=== PATIENT | male | born 1975 | race Caucasian/White ===

== ENCOUNTER 2018-06-30 03:22 | Inpatient (IN) | payer OTHER ==
[~2018-06-30] VITALS: Ht 177.8 cm; Wt 106.1 kg
[2018-06-30] MEDS ORDERED: ASPIRIN 81 MG TABLET CHEW PO ONE (04:00)
[2018-06-30] MEDS ORDERED: ONDANSETRON 2MG/ML, 2ML IVPush ONE (04:00)
[2018-06-30] MEDS ORDERED: ASPIRIN 81 MG TABLET CHEW ONE (04:09)
[2018-06-30] MEDS ORDERED: MORPHINE SULFATE 4 MG/ML, 1ML ONE ×2 (04:09→04:34)
[2018-06-30] MEDS ORDERED: ONDANSETRON 2MG/ML, 2ML ONE (04:09)
[2018-06-30] MEDS: MORPHINE SULFATE 4 MG/ML, 1ML IVPush PRN ×2 (04:11→04:38)
[2018-06-30 04:22] LABS: MEAN CORPUSCULAR HEMOGLOBIN 31.1 pg (27.5-34.5); MEAN CORPUSCULAR HGB CONC 34.8 g/dL (33.2-36.2); MEAN CORPUSCULAR VOLUME 89.3 fL (81-97); MEAN PLATELET VOLUME 8.5 fL (7.4-10.4); PLATELET COUNT 79 x10^3/uL (130-400); RED BLOOD COUNT 5.51 x10^6/uL (4.38-5.82); RED CELL DISTRIBUTION WIDTH 13.6 % (9.4-14.8)
[2018-06-30 04:26] LABS: INTERNATIONAL NORMALIZED RATIO 1.03 (0.93-1.1); PROTHROMBIN TIME 10.7 Seconds (9.6-11.5)
[2018-06-30 04:29] LABS: ALANINE AMINOTRANSFERASE 222 U/L (12-78); ALBUMIN 3.7 g/dL (3.4-5.0); ANION GAP 20 mmol/L (5-15); CALCIUM 7.4 mg/dL (8.5-10.1); CHLORIDE 90 mmol/L (98-107); CREATININE 0.94 mg/dL (0.7-1.3)
[2018-06-30 04:33] LABS: ALKALINE PHOSPHATASE 85 U/L (45-117); BILIRUBIN,TOTAL 1.9 mg/dL (0.2-1.0); TOTAL PROTEIN 7.8 g/dL (6.4-8.2); TROPONIN I < 0.015 ng/mL (0.000-0.045)
[2018-06-30 04:43] LABS: BASOPHILS # (AUTO) 0.03 x10^3/uL (0-0.1); BASOPHILS % (AUTO) 1 % (0-1); EOSINOPHILS % (AUTO) 0 % (1-7); LYMPHOCYTES # (AUTO) 1.42 x10^3/uL (1-3.4); LYMPHOCYTES % (AUTO) 29 % (22-44); MD SCAN; MONOCYTES # (AUTO) 0.47 x10^3/uL (0.2-0.8); MONOCYTES % (AUTO) 10 % (2-9); NEUTROPHILS % (AUTO) 61 % (42-75)
[2018-06-30] MEDS ORDERED: LORazepam 2 MG/ML, 1ML ONE (04:57)
[2018-06-30] MEDS ORDERED: SODIUM CHLORIDE 0.9% 1,000ML IVBOLUS ONE ×2 (05:00→05:30)
[2018-06-30] MEDS ORDERED: LORazepam 2 MG/ML, 1ML IVPush ONE (05:00)
[2018-06-30 05:11] LABS: MICROSCOPIC INDICATED
[2018-06-30 05:13] LABS: AMPHETAMINE SCREEN, URINE Negative (Negative); BARBITURATE SCREEN, URINE Negative (Negative); BENZODIAZEPINE SCREEN, URINE Negative (Negative); CANNABINOID SCREEN, URINE Negative (Negative); COCAINE SCREEN, URINE Negative (Negative); METHADONE SCREEN, URINE Negative (Negative); OPIATE SCREEN, URINE Positive (Negative)
[2018-06-30] MEDS ORDERED: WARF1TAB PO (05:14)
[2018-06-30 05:17] LABS: CULTURE INDICATED? NO
[2018-06-30] MEDS ORDERED: OMNIPAQUE 350 MG/ML, 100ML BOTTLE ONE (05:21)
[2018-06-30] MEDS ORDERED: SODIUM CHLORIDE 0.9% 1,000 ML IV ONE (06:04)
[2018-06-30] MEDS ORDERED: MORPHINE SULFATE 4 MG/ML, 1ML IVPush PRN (06:30)
[2018-06-30] MEDS ORDERED: ONDANSETRON 2MG/ML, 2ML IVPush PRN (06:30)
[2018-06-30 07:29] VITALS: BP 133/92
[2018-06-30] MEDS ORDERED: MORPHINE SULFATE 4 MG/ML, 1ML IVPush ONE (08:00)
[2018-06-30] MEDS ORDERED: POTASSIUM CHLORIDE 10 MEQ, MVI ADULT 10 ML, FOLIC ACID 1 MG, MAGNESIUM SULFATE 1 GM in ... IV SCH (09:05)
[2018-06-30] MEDS ORDERED: DOCUSATE 100 MG CAPSULE PO PRN (09:30)
[2018-06-30] MEDS ORDERED: LACTATED RINGERS 1,000 ML IVBOLUS ONE (09:30)
[2018-06-30] MEDS ORDERED: ACETAMINOPHEN 325 MG TABLET PO PRN (09:30)
[2018-06-30] MEDS ORDERED: HYDROcodone/APAP 5/325 TABLET PO PRN (09:30)
[2018-06-30] MEDS ORDERED: LORazepam 2 MG/ML, 1ML IV PRN (09:30)
[2018-06-30 09:41] LABS: CHOLESTEROL, TOTAL 245 mg/dL (140-239)
[2018-06-30 09:44] LABS: CHOL/HDL RATIO 4.8; HDL CHOL % 21 % (26-37); HDL CHOLESTEROL (DIRECT) 51 mg/dL (40-60); TRIGLYCERIDES 617 mg/dL (50-200)
[2018-06-30] MEDS: LORazepam 2 MG/ML, 1ML IV PRN ×5 (10:09→23:30)
[2018-06-30 10:13] VITALS: BP 133/92
[2018-06-30] MEDS: morphine SULFATE 10 MG/ML, 1ML IVPush PRN ×3 (10:45→17:17)
[2018-06-30 14:30] VITALS: BP 149/86
[2018-06-30] MEDS ORDERED: ENOXAPARIN 40 MG/0.4 ML SQ SCH (14:30)
[2018-06-30] MEDS: LACTATED RINGERS 1,000 ML IV SCH (20:34)
[2018-06-30 21:08] VITALS: BP 181/109
[2018-07-01] MEDS: LACTATED RINGERS 1,000 ML IV SCH ×2 (01:23→06:44)
[2018-07-01 03:08] VITALS: BP 132/83
[2018-07-01] MEDS: LORazepam 2 MG/ML, 1ML IV PRN ×4 (03:11→22:02)
[2018-07-01 04:52] LABS: ALANINE AMINOTRANSFERASE 196 U/L (12-78); ALBUMIN 3.6 g/dL (3.4-5.0); ANION GAP 9 mmol/L (5-15); CALCIUM 7.7 mg/dL (8.5-10.1); CHLORIDE 96 mmol/L (98-107); CREATININE 0.64 mg/dL (0.7-1.3)
[2018-07-01 04:54] LABS: ALKALINE PHOSPHATASE 77 U/L (45-117); BILIRUBIN,TOTAL 2.7 mg/dL (0.2-1.0); TOTAL PROTEIN 7.4 g/dL (6.4-8.2)
[2018-07-01 07:36] VITALS: BP 138/94
[2018-07-01] MEDS ORDERED: POTASSIUM CHLORIDE 10 MEQ, MVI ADULT 10 ML, FOLIC ACID 1 MG, MAGNESIUM SULFATE 1 GM in ... IV SCH (09:00)
[2018-07-01 15:00] VITALS: BP 133/95
[2018-07-01 15:19] LABS: BASOPHILS # (AUTO) 0.01 x10^3/uL (0-0.1); BASOPHILS % (AUTO) 0 % (0-1); EOSINOPHILS # (AUTO) 0.02 x10^3/uL (0-0.4); EOSINOPHILS % (AUTO) 1 % (1-7); LYMPHOCYTES # (AUTO) 0.78 x10^3/uL (1-3.4); LYMPHOCYTES % (AUTO) 20 % (22-44); MD NO; MEAN CORPUSCULAR HEMOGLOBIN 31.3 pg (27.5-34.5); MEAN CORPUSCULAR HGB CONC 34.9 g/dL (33.2-36.2); MEAN CORPUSCULAR VOLUME 89.6 fL (81-97); MEAN PLATELET VOLUME 8.7 fL (7.4-10.4); MONOCYTES # (AUTO) 0.36 x10^3/uL (0.2-0.8); MONOCYTES % (AUTO) 9 % (2-9); NEUTROPHILS # (AUTO) 2.74 x10^3/uL (1.8-6.8); NEUTROPHILS % (AUTO) 70 % (42-75); PLATELET COUNT 73 x10^3/uL (130-400); RED BLOOD COUNT 4.99 x10^6/uL (4.38-5.82); RED CELL DISTRIBUTION WIDTH 13.4 % (9.4-14.8)
[2018-07-01] MEDS: morphine SULFATE 10 MG/ML, 1ML IVPush PRN ×2 (17:43→20:52)
[2018-07-01 19:56] VITALS: BP 136/96
[2018-07-02 00:59] VITALS: BP 135/83
[2018-07-02] MEDS: ONDANSETRON 2MG/ML, 2ML IVPush PRN ×3 (01:05→21:14)
[2018-07-02] MEDS: LORazepam 2 MG/ML, 1ML IV PRN ×3 (02:03→15:06)
[2018-07-02] MEDS: morphine SULFATE 10 MG/ML, 1ML IVPush PRN (04:42)
[2018-07-02 05:56] LABS: ALBUMIN 3.5 g/dL (3.4-5.0); ANION GAP 9 mmol/L (5-15); CALCIUM 7.9 mg/dL (8.5-10.1); CHLORIDE 98 mmol/L (98-107)
[2018-07-02 05:59] LABS: ALANINE AMINOTRANSFERASE 191 U/L (12-78); ALKALINE PHOSPHATASE 75 U/L (45-117); BILIRUBIN,TOTAL 1.8 mg/dL (0.2-1.0); CREATININE 0.78 mg/dL (0.7-1.3); TOTAL PROTEIN 7.5 g/dL (6.4-8.2)
[2018-07-02 06:00] LABS: MEAN CORPUSCULAR HEMOGLOBIN 31.1 pg (27.5-34.5); MEAN CORPUSCULAR HGB CONC 35.3 g/dL (33.2-36.2); MEAN CORPUSCULAR VOLUME 88.3 fL (81-97); MEAN PLATELET VOLUME 9.3 fL (7.4-10.4); PLATELET COUNT 76 x10^3/uL (130-400); RED BLOOD COUNT 5.05 x10^6/uL (4.38-5.82); RED CELL DISTRIBUTION WIDTH 13.6 % (9.4-14.8)
[2018-07-02] MEDS ORDERED: POTASSIUM CHLORIDE 40 MEQ in SODIUM CHLORIDE 0.9% 500 ML IV ONE (06:30)
[2018-07-02 06:35] LABS: BASOPHILS # (AUTO) 0.02 x10^3/uL (0-0.1); BASOPHILS % (AUTO) 1 % (0-1); EOSINOPHILS # (AUTO) 0.06 x10^3/uL (0-0.4); EOSINOPHILS % (AUTO) 2 % (1-7); LYMPHOCYTES # (AUTO) 1.04 x10^3/uL (1-3.4); LYMPHOCYTES % (AUTO) 29 % (22-44); MD SCAN; MONOCYTES # (AUTO) 0.32 x10^3/uL (0.2-0.8); MONOCYTES % (AUTO) 9 % (2-9); NEUTROPHILS # (AUTO) 2.14 x10^3/uL (1.8-6.8); NEUTROPHILS % (AUTO) 60 % (42-75)
[2018-07-02 06:56] LABS: C-REACTIVE PROTEIN, QUANT 0.82 mg/dL (0.02-0.49)
[2018-07-02] MEDS ORDERED: CHLORDIAZEPOXIDE 25 MG CAPSULE PO PRN (07:30)
[2018-07-02] MEDS: LACTATED RINGERS 1,000 ML IV SCH ×4 (07:30→23:30)
[2018-07-02 08:04] VITALS: BP 139/78
[2018-07-02] MEDS: FOLIC ACID 1 MG TABLET PO SCH (09:34)
[2018-07-02] MEDS: THIAMINE 100MG TABLET PO SCH (09:34)
[2018-07-02] MEDS: CHLORDIAZEPOXIDE 25 MG CAPSULE PO SCH ×2 (09:34→21:14)
[2018-07-02] MEDS: MULTIVITAMIN 1 TABLET PO SCH (09:34)
[2018-07-02 12:56] VITALS: BP 125/85
[2018-07-02 18:51] VITALS: BP 131/86
[2018-07-02] MEDS: OXYcodone/APAP 5/325MG TABLET PO PRN (21:14)
[2018-07-03] MEDS: LACTATED RINGERS 1,000 ML IV SCH ×3 (00:03→08:43)
[2018-07-03 00:37] VITALS: BP 118/77
[2018-07-03] MEDS: ONDANSETRON 2MG/ML, 2ML IVPush PRN (03:15)
[2018-07-03] MEDS: OXYcodone/APAP 5/325MG TABLET PO PRN (03:15)
[2018-07-03 07:04] LABS: ANION GAP 10 mmol/L (5-15); CHLORIDE 102 mmol/L (98-107)
[2018-07-03 07:05] LABS: CALCIUM 8.4 mg/dL (8.5-10.1); CREATININE 0.74 mg/dL (0.7-1.3)
[2018-07-03 07:35] VITALS: BP 126/84
[2018-07-03] MEDS: MULTIVITAMIN 1 TABLET PO SCH (08:44)
[2018-07-03] MEDS: THIAMINE 100MG TABLET PO SCH (08:44)
[2018-07-03] MEDS: FOLIC ACID 1 MG TABLET PO SCH (08:44)
[2018-07-03] MEDS ORDERED: IBUP-1221 PO (10:44)
[2018-07-03] MEDS ORDERED: FOLI-17 PO (10:44)
[2018-07-03] MEDS ORDERED: ACET325T14 PO (10:44)
[2018-07-03] MEDS ORDERED: FENO120T5 PO (10:48)
== END 2018-07-03 11:00 | disposition home or self-care (01) | DRG 432 ==
LOC: ED 05:26 → EDIP 06:04 → 3NW 06:57 → 5SO 07-01 17:37
PROVIDERS: ADMIT Family Medicine; ATTEND Family Medicine
DX: K70.10 Alcoholic hepatitis without ascites (principal); K85.20 Alcohol induced acute pancreatitis without necrosis or infection; F10.239 Alcohol dependence with withdrawal, unspecified; E87.1 Hypo-osmolality and hyponatremia; E87.2 Acidosis; K57.90 Diverticulosis of intestine, part unspecified, without perforation or abscess without bleeding; I48.0 Paroxysmal atrial fibrillation; Y90.8 Blood alcohol level of 240 mg/100 ml or more; K29.20 Alcoholic gastritis without bleeding; I25.10 Atherosclerotic heart disease of native coronary artery without angina pectoris; E87.6 Hypokalemia; E86.1 Hypovolemia; E78.1 Pure hyperglyceridemia; K21.0 Gastro-esophageal reflux disease with esophagitis; E86.0 Dehydration; D69.6 Thrombocytopenia, unspecified; I10 Essential (primary) hypertension; K82.8 Other specified diseases of gallbladder; I48.2 Chronic atrial fibrillation; Z79.01 Long term (current) use of anticoagulants; Z95.5 Presence of coronary angioplasty implant and graft; I25.2 Old myocardial infarction; Z79.899 Other long term (current) drug therapy; Z79.1 Long term (current) use of non-steroidal anti-inflammatories (NSAID)
CPT/HCPCS: 36415; 99285; J7042; 71045; 74177; 76700; 76705; 80048; 80053; 80061; 80074; 80307; 81001; 83690; 83735; 84100; 84484; 85025; 85610; 86140; 93005; 96361; 96374; 96375; G0378; J2405; J3475; J3480; Q9967; J2060; J2270; J7030; J7040; J7120

== ENCOUNTER 2020-03-23 08:09 | Inpatient (IN) | payer OTHER ==
[~2020-03-23] VITALS: Ht 175.3 cm; Wt 115.1 kg
[~2020-03-23 08:09] MED LIST: ACET325T14 PO; FENO120T5 PO; FOLI-17 PO; IBUP-1221 PO; WARF1TAB2 PO
[2020-03-23] MEDS ORDERED: SODIUM CHLORIDE FLUSH 10ML SYR IVF ONE (08:30)
[2020-03-23] MEDS ORDERED: METOCLOPRAMIDE 5 MG/ML, 2ML IVPush ONE (08:30)
--- NOTE | 2020-03-23 08:46 | NUR ---
PT BIB [facility] FROM [place]. PT WITH HX OF RECENT FALLS. PRESENTED TO [facility] THIS AM WITH C/O RIGHT KNEE SWELLING, PT FOUND TO HAVE JAUNDICE APPEARING SCLERA, RIGHT KNEE SWELLING/PAIN, LEFT FLANK BRUISING. LABS RPT BY MORENO = Na+ OF 106. PT PRESENTS WITH KNEE IMMOBILIZER ON RIGHT KNEE. RIGHT GROIN TLC CENTRAL LINE AND 3%NS RUNNING AT 95ML/HR. PT TRANSFERED TO ED [facility] WITH MIN ASSIST. IMMOBILIZER REMOVED. RIGHT KNEE WITH SWELLING AND BRUISING NOTED FROM MID THIGH TO BELOW KNEE. LEG ELEVATED ON PILLOW, RIGHT PD PULSE PALPABLE. LARGE BRUISE WITH SUPERFICIAL SCRATCH NOTED TO LEFT FLANK AREA, TENDER TO PALPATION. VSS, RESP RATE 24, DEEP RAPID WITH LUNGS CLEAR. PT DENIES ANY COVID EXPOSURE. SPOKE WITH PHARMACY (PEDRO LUIS) REGARDING 3% SODIUM RATE. PER PHARM THIS RATE EXCEEDS [facility] POLICY. GTT ON HOLD AT THIS TIME, DR ALCARAZ AWARE. CALL LIGHT W/I REACH, PT MED NOTED FOR NAUSEA
[2020-03-23 08:54] LABS: INTERNATIONAL NORMALIZED RATIO 1.29 (0.93-1.1); PROTHROMBIN TIME 13.7 Seconds (9.6-11.5)
[2020-03-23] MEDS ORDERED: METOCLOPRAMIDE 5 MG/ML, 2ML ONE (08:58)
[2020-03-23 09:00] LABS: ANION GAP 15 mmol/L (5-15); CALCIUM 6.9 mg/dL (8.5-10.1); CHLORIDE 77 mmol/L (98-107); CREATININE 0.72 mg/dL (0.7-1.3)
[2020-03-23] MEDS ORDERED: PLEASE ENTER HEIGHT AND WEIGHT MC SCH (09:00)
[2020-03-23 09:06] LABS: MEAN CORPUSCULAR HEMOGLOBIN 30.9 pg (27.5-34.5); MEAN CORPUSCULAR HGB CONC 33.4 g/dL (33.2-36.2); MEAN CORPUSCULAR VOLUME 92.5 fL (81-97); PLATELET COUNT 129 x10^3/uL (130-400); RED BLOOD COUNT 3.88 x10^6/uL (4.38-5.82); RED CELL DISTRIBUTION WIDTH 14.8 % (9.4-14.8)
[2020-03-23 09:08] LABS: ALANINE AMINOTRANSFERASE 1731 U/L (12-78); ALKALINE PHOSPHATASE 296 U/L (45-117); BILIRUBIN,TOTAL 11.7 mg/dL (0.2-1.0); TOTAL PROTEIN 5.6 g/dL (6.4-8.2)
[2020-03-23 09:15] LABS: BASOPHILS # (AUTO) 0.03 x10^3/uL (0-0.1); BASOPHILS % (AUTO) 0 % (0-1); EOSINOPHILS # (AUTO) 0.03 x10^3/uL (0-0.4); EOSINOPHILS % (AUTO) 0 % (1-7); LYMPHOCYTES # (AUTO) 1.16 x10^3/uL (1-3.4); LYMPHOCYTES % (AUTO) 14 % (22-44); MD SCAN; MONOCYTES % (AUTO) 12 % (2-9); NEUTROPHILS # (AUTO) 6.37 x10^3/uL (1.8-6.8); NEUTROPHILS % (AUTO) 74 % (42-75)
[2020-03-23] MEDS ORDERED: POTASSIUM CHLORIDE 20 MEQ TAB.ER.PRT PO ONE ×2 (09:30→14:30)
[2020-03-23] MEDS ORDERED: OMNIPAQUE 350 MG/ML, 150 ML BOTTLE ONE (09:46)
--- NOTE | 2020-03-23 10:04 | NUR ---
PT RPTS NAUSEA IMPROVED. VSS, PT TO RADIOLOGY WITH TECH TRANSPORT
[2020-03-23 10:24] LABS: MICROSCOPIC INDICATED
[2020-03-23] MEDS ORDERED: HYDROmorphone 2 MG/ML, 1ML IVPush PRN (10:30)
[2020-03-23] MEDS ORDERED: POTASSIUM CHLORIDE 20 MEQ TAB.ER.PRT ONE ×2 (10:35→15:56)
[2020-03-23] MEDS ORDERED: HYDROmorphone 1 MG/ML, 1ML INJ ONE (10:36)
--- NOTE | 2020-03-23 11:06 | NUR ---
BEDSIDE, SBAR RPT TO [facility].
--- NOTE | 2020-03-23 11:11 | NUR ---
PT TRANSFERRED TO HOSPITAL BED. PT CCU HOLD IN ED.
[2020-03-23] MEDS ORDERED: LORazepam 2 MG/ML, 1ML IV PRN ×5 (11:30)
[2020-03-23] MEDS ORDERED: LORazepam 0.5MG TABLET PO PRN (11:30)
[2020-03-23] MEDS ORDERED: ONDANSETRON 2MG/ML, 2ML IVPush PRN (11:30)
[2020-03-23] MEDS ORDERED: MELATONIN 5 MG TABLET PO PRN (11:30)
[2020-03-23] MEDS ORDERED: hydrALAzine 20 MG/ML, 1ML IVPush PRN (11:30)
[2020-03-23] MEDS ORDERED: LORazepam 1MG TABLET PO PRN ×4 (11:30)
[2020-03-23] MEDS ORDERED: KETOROLAC 30 MG/1 ML IV PRN (11:30)
[2020-03-23] MEDS ORDERED: LORazepam 2 MG/ML, 1ML ONE (11:43)
--- NOTE | 2020-03-23 11:48 | NUR ---
MEDS REQUESTED FROM PHARMACY
--- NOTE | 2020-03-23 11:50 | NUR ---
PT RESTING COMFORTABLY ON HOSPITAL BED. CIWA SCORE 14, ATIVAN 2MG GIVEN PER OCT. US AT BEDSIDE.
[2020-03-23 11:55] LABS: HCT (SEDRATE) 38.2 % (39.2-51.8)
[2020-03-23 12:00] LABS: ANION GAP 14 mmol/L (5-15); CALCIUM 7.3 mg/dL (8.5-10.1); CHLORIDE 76 mmol/L (98-107)
[2020-03-23] MEDS ORDERED: DIAZEPAM 5 MG TABLET ONE ×2 (12:21→18:50)
[2020-03-23] MEDS: THIAMINE 200 MG in DEXTROSE 5% 50 ML IVPB SCH (12:28)
[2020-03-23] MEDS: DIAZEPAM 5 MG TABLET PO SCH ×2 (12:29→18:51)
[2020-03-23] MEDS ORDERED: CALCIUM GLUCONATE 9.2 MEQ in SODIUM CHLORIDE 0.9% 100 ML IV ONE (12:30)
[2020-03-23] MEDS ORDERED: POTASSIUM PHOSPHATE 44 MEQ in SODIUM CHLORIDE 0.9% 500 ML IV ONE (13:30)
[2020-03-23 13:53] LABS: CREATINE KINASE, TOTAL 20447 U/L (39-308)
[2020-03-23 14:03] LABS: OSMOLALITY,URINE 607 mOsm/kg (500-850)
--- NOTE | 2020-03-23 14:08 | NUR ---
PT SLEEPING ON OZZYGUME. DOUG.
--- NOTE | 2020-03-23 16:26 | NUR ---
PT HAD MOVED TO SIT EDGE OF BED TO URINATE. PT PULLED OUT PIV IN LAC. PT ADJUSTED FOR COMFORT. TWO PIV PLACED. MD FISHER AT BEDSIDE FOR ASSESSMENT. CALLING FOR ORTHO ASSESSMENT FOR POSIBLE COMPARTMENT SYNDROME OF RIGHT LEG, D/T ELEVATED CK. MD FISHER OK TO REMOVE CENTRAL LINE IN GROIN.
[2020-03-23 16:47] LABS: ANION GAP 12 mmol/L (5-15); CHLORIDE 80 mmol/L (98-107); CREATININE 0.79 mg/dL (0.7-1.3)
--- NOTE | 2020-03-23 16:51 | NUR ---
RIGHT FEMORAL LINE PULLED, PER DR FISHER. PRESSURE HELD. NO BLEEDING AT SITE.
[2020-03-23] MEDS ORDERED: SODIUM CHLORIDE 3% 500 ML IV PRN (17:30)
--- NOTE | 2020-03-23 18:46 | NUR ---
3% SODIUM CHLORIDE STARTED PER OCT, VERIFIED WITH DELFINO Valdez RN.
--- NOTE | 2020-03-23 18:52 | NUR ---
PT SITTING UP IN BED EATING DINNER. PT APPRECIATIVE. PT MORE ALERT NOW THAN HE HAS BEEN.
--- NOTE | 2020-03-23 19:54 | NUR ---
REPORT GIVEN TO AHMET SOSA.
[2020-03-23 21:28] LABS: ANION GAP 7 mmol/L (5-15); CALCIUM 7.2 mg/dL (8.5-10.1); CHLORIDE 83 mmol/L (98-107); CREATININE 0.75 mg/dL (0.7-1.3)
[2020-03-24] MEDS: DIAZEPAM 5 MG TABLET PO SCH ×5 (00:03→23:32)
[2020-03-24 01:45] LABS: ANION GAP 12 mmol/L (5-15); CALCIUM 6.9 mg/dL (8.5-10.1); CHLORIDE 85 mmol/L (98-107); CREATININE 0.75 mg/dL (0.7-1.3)
[2020-03-24 04:00] VITALS: BP 103/67
[2020-03-24 04:43] LABS: MEAN CORPUSCULAR HEMOGLOBIN 31.7 pg (27.5-34.5); MEAN CORPUSCULAR HGB CONC 34.2 g/dL (33.2-36.2); MEAN CORPUSCULAR VOLUME 92.5 fL (81-97); MEAN PLATELET VOLUME 9.1 fL (7.4-10.4); PLATELET COUNT 109 x10^3/uL (130-400); RED BLOOD COUNT 3.51 x10^6/uL (4.38-5.82); RED CELL DISTRIBUTION WIDTH 15.3 % (9.4-14.8)
[2020-03-24 04:49] LABS: ALBUMIN 2.8 g/dL (3.4-5.0); ANION GAP 11 mmol/L (5-15); CHLORIDE 86 mmol/L (98-107); CREATININE 0.79 mg/dL (0.7-1.3)
[2020-03-24 05:30] LABS: ALANINE AMINOTRANSFERASE 1244 U/L (12-78); ALKALINE PHOSPHATASE 297 U/L (45-117); BILIRUBIN,TOTAL 11.7 mg/dL (0.2-1.0); CREATINE KINASE, TOTAL 9580 U/L (39-308); TOTAL PROTEIN 5.7 g/dL (6.4-8.2)
[2020-03-24 05:50] LABS: BASOPHILS # (AUTO) 0.01 x10^3/uL (0-0.1); BASOPHILS % (AUTO) 0 % (0-1); EOSINOPHILS # (AUTO) 0.03 x10^3/uL (0-0.4); EOSINOPHILS % (AUTO) 1 % (1-7); LYMPHOCYTES # (AUTO) 1.02 x10^3/uL (1-3.4); LYMPHOCYTES % (AUTO) 17 % (22-44); MD SCAN; MONOCYTES # (AUTO) 0.73 x10^3/uL (0.2-0.8); MONOCYTES % (AUTO) 12 % (2-9); NEUTROPHILS # (AUTO) 4.25 x10^3/uL (1.8-6.8); NEUTROPHILS % (AUTO) 70 % (42-75)
[2020-03-24] MEDS ORDERED: POTASSIUM CHLORIDE 20 MEQ TAB.ER.PRT PO ONE (06:30)
[2020-03-24] MEDS: PANTOPRAZOLE 40 MG IV IVPush SCH (07:35)
[2020-03-24] MEDS ORDERED: POTASSIUM PHOSPHATE 22 MEQ in SODIUM CHLORIDE 0.9% 500 ML IV ONE (09:30)
[2020-03-24] MEDS: OXYcodone IR 5MG TABLET PO PRN (09:42)
[2020-03-24] MEDS: THIAMINE 200 MG in DEXTROSE 5% 50 ML IVPB SCH (10:52)
[2020-03-24] MEDS ORDERED: DIAZEPAM 10 MG TABLET PO SCH (11:30)
[2020-03-24 12:45] VITALS: BP 115/73
[2020-03-24 14:40] LABS: CALCIUM 7.2 mg/dL (8.5-10.1); CHLORIDE 92 mmol/L (98-107); CREATININE 0.82 mg/dL (0.7-1.3)
[2020-03-24 16:08] LABS: ANION GAP 7 mmol/L (5-15)
[2020-03-24 19:58] VITALS: BP 105/68
[2020-03-25 00:46] VITALS: BP 115/72
[2020-03-25 00:56] VITALS: BP 108/70
[2020-03-25] MEDS: DIAZEPAM 5 MG TABLET PO SCH ×4 (05:31→23:30)
[2020-03-25 06:49] LABS: MEAN CORPUSCULAR HEMOGLOBIN 31.8 pg (27.5-34.5); MEAN CORPUSCULAR HGB CONC 34.4 g/dL (33.2-36.2); MEAN CORPUSCULAR VOLUME 92.6 fL (81-97); MEAN PLATELET VOLUME 8.9 fL (7.4-10.4); PLATELET COUNT 133 x10^3/uL (130-400); RED BLOOD COUNT 3.14 x10^6/uL (4.38-5.82)
[2020-03-25 06:56] LABS: ALANINE AMINOTRANSFERASE 836 U/L (12-78); ALBUMIN 2.5 g/dL (3.4-5.0); ANION GAP 7 mmol/L (5-15); CALCIUM 7.2 mg/dL (8.5-10.1); CHLORIDE 94 mmol/L (98-107); CREATININE 0.85 mg/dL (0.7-1.3)
[2020-03-25 06:58] VITALS: BP 95/57
[2020-03-25 06:58] LABS: ALKALINE PHOSPHATASE 264 U/L (45-117); BILIRUBIN,TOTAL 5.9 mg/dL (0.2-1.0); TOTAL PROTEIN 5.5 g/dL (6.4-8.2)
[2020-03-25 07:24] LABS: MD YES
[2020-03-25 07:26] LABS: BANDS%(MANUAL) 7 % (0-7); EOS#(MANUAL) 0.06 x10^3/uL (0.0-0.4); EOS% (MANUAL) 1 % (1-7); LYMPH#(MANUAL) 2.17 x10^3/uL (1-3.4); LYMPHS% (MANUAL) 38 % (22-44); MONOS#(MANUAL) 0.29 x10^3/uL (0.3-2.7); MONOS% (MANUAL) 5 % (2-9); MYELOCYTES# (MANUAL) 0.06 x10^3/uL (0-0); MYELOCYTES% (MANUAL) 1 % (0-0); NRBC % (MANUAL) 2 % (0-1); SEG#(MANUAL) 2.74 x10^3/uL (1.8-6.8); SEGS% (MANUAL) 48 % (42-75)
[2020-03-25 07:27] LABS: <PLATELET ESTIMATE> ADEQUATE; <PLT MORPHOLOGY> NORMAL PLT MORPH; ANISOCYTOSIS 1+; POLYCHROMASIA 1+
[2020-03-25 07:28] LABS: STOMATOCYTES 1+
[2020-03-25] MEDS ORDERED: POTASSIUM CHLORIDE 10% 40 MEQ/30 ML UDC PO ONE (07:30)
[2020-03-25] MEDS: OXYcodone IR 5MG TABLET PO PRN (08:31)
[2020-03-25] MEDS: PANTOPRAZOLE 40 MG IV IVPush SCH (08:31)
[2020-03-25] MEDS: THIAMINE 200 MG in DEXTROSE 5% 50 ML IVPB SCH (08:32)
[2020-03-25 12:56] VITALS: BP 95/65
[2020-03-25 18:46] VITALS: BP 96/59
[2020-03-26 00:29] VITALS: BP 120/77
[2020-03-26] MEDS: OXYcodone IR 5MG TABLET PO PRN ×3 (00:36→16:10)
[2020-03-26] MEDS: PANTOPRAZOLE 40MG TABLET PO SCH (05:10)
[2020-03-26] MEDS: DIAZEPAM 5 MG TABLET PO SCH (05:10)
[2020-03-26 07:17] VITALS: BP 102/76
[2020-03-26 08:11] LABS: ALANINE AMINOTRANSFERASE 656 U/L (12-78); ALBUMIN 2.6 g/dL (3.4-5.0); ANION GAP 6 mmol/L (5-15); CALCIUM 7.8 mg/dL (8.5-10.1); CHLORIDE 99 mmol/L (98-107); CREATININE 0.73 mg/dL (0.7-1.3)
[2020-03-26 08:13] LABS: ALKALINE PHOSPHATASE 264 U/L (45-117); TOTAL PROTEIN 5.9 g/dL (6.4-8.2)
[2020-03-26] MEDS: THIAMINE 200 MG in DEXTROSE 5% 50 ML IVPB SCH (08:53)
[2020-03-26 09:23] LABS: MD YES; MEAN CORPUSCULAR HEMOGLOBIN 32.3 pg (27.5-34.5); MEAN CORPUSCULAR HGB CONC 33.4 g/dL (33.2-36.2); MEAN CORPUSCULAR VOLUME 96.7 fL (81-97); MEAN PLATELET VOLUME 8.3 fL (7.4-10.4); PLATELET COUNT 157 x10^3/uL (130-400); RED BLOOD COUNT 3.07 x10^6/uL (4.38-5.82); RED CELL DISTRIBUTION WIDTH 16.8 % (9.4-14.8)
[2020-03-26 09:26] LABS: ANISOCYTOSIS 1+; BAND#(MANUAL) 0.64 x10^3/uL; BANDS%(MANUAL) 10 % (0-7); EOS#(MANUAL) 0.06 x10^3/uL (0.0-0.4); EOS% (MANUAL) 1 % (1-7); LYMPH#(MANUAL) 1.47 x10^3/uL (1-3.4); LYMPHS% (MANUAL) 23 % (22-44); METAMYELOCYTES# (MANUAL) 0.06 x10^3/uL (0-0); METAMYELOCYTES% (MANUAL) 1 % (0-1); MONOS#(MANUAL) 0.96 x10^3/uL (0.3-2.7); MONOS% (MANUAL) 15 % (2-9); MYELOCYTES# (MANUAL) 0.06 x10^3/uL (0-0); MYELOCYTES% (MANUAL) 1 % (0-0); NRBC % (MANUAL) 4 % (0-1); POLYCHROMASIA 1+; SEG#(MANUAL) 3.14 x10^3/uL (1.8-6.8); SEGS% (MANUAL) 49 % (42-75)
[2020-03-26 09:27] LABS: STOMATOCYTES 1+; TARGET CELLS 1+
[2020-03-26 09:28] LABS: <PLATELET ESTIMATE> ADEQUATE; <PLT MORPHOLOGY> NORMAL PLT MORPH
[2020-03-26] MEDS ORDERED: SENNA/DOCUSATE TABLET PO PRN (15:00)
[2020-03-26 15:10] VITALS: BP 121/77
[2020-03-26 19:56] VITALS: BP 111/74
[2020-03-27 01:19] VITALS: BP 93/62
[2020-03-27] MEDS: PANTOPRAZOLE 40MG TABLET PO SCH (04:55)
[2020-03-27] MEDS: OXYcodone IR 5MG TABLET PO PRN ×4 (04:55→20:02)
[2020-03-27 06:58] VITALS: BP 111/62
[2020-03-27] MEDS: THIAMINE 200 MG in DEXTROSE 5% 50 ML IVPB SCH (09:29)
[2020-03-27 12:08] VITALS: BP 128/81
[2020-03-27 19:24] VITALS: BP_SYST 110; BP_SYST 78; BP_DIAS 72
[2020-03-28] MEDS: OXYcodone IR 5MG TABLET PO PRN ×2 (00:32→05:20)
[2020-03-28 00:56] VITALS: BP 110/71
[2020-03-28] MEDS: PANTOPRAZOLE 40MG TABLET PO SCH (05:20)
[2020-03-28 07:51] VITALS: BP 112/76
[2020-03-28] MEDS ORDERED: MULT-500 PO (11:47)
== END 2020-03-28 13:00 | disposition home or self-care (01) | DRG 605 ==
LOC: ED 10:54 → SUATTDRO 10:55 → EDIP 12:31 → CCU 19:52 → 3N 03-24 08:32
PROVIDERS: ADMIT Hospitalist; ATTEND Internal Medicine
DX: S80.01XA Contusion of right knee, initial encounter (principal); D68.9 Coagulation defect, unspecified; E87.1 Hypo-osmolality and hyponatremia; E87.2 Acidosis; F10.239 Alcohol dependence with withdrawal, unspecified; K86.1 Other chronic pancreatitis; M62.82 Rhabdomyolysis; S80.11XA Contusion of right lower leg, initial encounter; D63.8 Anemia in other chronic diseases classified elsewhere; D69.6 Thrombocytopenia, unspecified; E83.39 Other disorders of phosphorus metabolism; E87.6 Hypokalemia; E88.09 Other disorders of plasma-protein metabolism, not elsewhere classified; I25.10 Atherosclerotic heart disease of native coronary artery without angina pectoris; I48.0 Paroxysmal atrial fibrillation; K70.10 Alcoholic hepatitis without ascites; K72.90 Hepatic failure, unspecified without coma; K76.0 Fatty (change of) liver, not elsewhere classified; W10.9XXA Fall (on) (from) unspecified stairs and steps, initial encounter; Y90.9 Presence of alcohol in blood, level not specified; Z95.5 Presence of coronary angioplasty implant and graft; I25.2 Old myocardial infarction; Z83.3 Family history of diabetes mellitus; Z86.61 Personal history of infections of the central nervous system; Y93.89 Activity, other specified; Y92.89 Other specified places as the place of occurrence of the external cause; Y99.8 Other external cause status
CPT/HCPCS: 36415; 71045; 74177; 76700; 80048; 80053; 80307; 81001; 82140; 82330; 82533; 82550; 83605; 83690; 83735; 83930; 83935; 84100; 84443; 84550; 85025; 85610; 85651; 85730; 87081; 93005; 96374; 96375; 99285; G0378; J0610; J1170; J1885; J3411; Q9967; C9113; J2060; J2765; J7040

== ENCOUNTER 2020-09-21 19:26 | Emergency (ER) | payer OTHER ==
[~2020-09-21] VITALS: Ht 177.8 cm; Wt 115.9 kg
[~2020-09-21 19:26] MED LIST changes: -FOLI-17 PO; +FOLI1TAB32 PO; +MULT-500 PO
[2020-09-21] MEDS ORDERED: HYDROmorphone 1 MG/ML, 1ML INJ IV ONE (20:00)
[2020-09-21] MEDS ORDERED: HYDROmorphone 1 MG/ML, 1ML INJ ONE (20:07)
[2020-09-21 22:34] VITALS: BP 134/74
== END 2020-09-21 22:36 | disposition home or self-care (01) ==
LOC: ED 20:58
DX: S93.402A Sprain of unspecified ligament of left ankle, initial encounter (principal); I25.10 Atherosclerotic heart disease of native coronary artery without angina pectoris; X50.1XXA Overexertion from prolonged static or awkward postures, initial encounter; Y93.89 Activity, other specified; Y92.89 Other specified places as the place of occurrence of the external cause; Y99.8 Other external cause status
CPT/HCPCS: 29515; 73610; 96374; 99283; J1170